=== PATIENT | male | born 1945 | race Caucasian/White ===

== ENCOUNTER 2017-03-14 10:53 | Emergency (ER) | payer MEDICARE ==
[~2017-03-14] VITALS: Ht 175.2 cm; Wt 79.8 kg
[~2017-03-14 10:53] MED LIST: DARVOCET N 1001 TAB PO; DAYPRO600 M1 PO
[2017-03-14] MEDS ORDERED: ULTRAM50 MG PO (12:39)
== END 2017-03-14 12:50 | disposition home or self-care (01) ==
LOC: ED 10:53
DX: S20.212A Contusion of left front wall of thorax, initial encounter (principal); Z88.6 Allergy status to analgesic agent; W18.39XA Other fall on same level, initial encounter; Y93.89 Activity, other specified; Y92.89 Other specified places as the place of occurrence of the external cause; Y99.8 Other external cause status

== ENCOUNTER → 2022-08-28 | Outpatient (CLI) | payer OTHER ==
[~2022-08-28] MED LIST changes: +ULTRAM50 MG PO
== END | disposition home or self-care (01) ==
LOC: RAD 12:12
PROVIDERS: ATTEND Family Medicine
DX: M79.605 Pain in left leg (principal)

== ENCOUNTER 2022-12-20 09:35 | Emergency (ER) | payer OTHER ==
[~2022-12-20] VITALS: Ht 175.2 cm; Wt 74.8 kg
[2022-12-20] MEDS ORDERED: AMLODIPINE BESYL5 MG PO (09:54)
[2022-12-20] MEDS ORDERED: FUROSEMIDE20 M1 PO (09:55)
[2022-12-20] MEDS ORDERED: CLOPIDOGREL75 MG PO (09:55)
[2022-12-20] MEDS ORDERED: METFORMIN HYDR500 MG PO (09:55)
[2022-12-20] MEDS ORDERED: DICLOFENAC SOD75 MG PO (09:56)
[2022-12-20] MEDS ORDERED: PANTOPRAZOLE SO40 MG PO (09:56)
[2022-12-20] MEDS ORDERED: ZOLPIDEM10 MG PO (09:56)
[2022-12-20] MEDS ORDERED: PROPRANOLOL HCL40 MG PO (09:56)
[2022-12-20] MEDS ORDERED: ATORVASTATIN CA40 M1 PO (09:57)
[2022-12-20] MEDS ORDERED: ZYRTEC10 M2 PO (09:58)
== END 2022-12-20 10:57 | disposition home or self-care (01) ==
LOC: ED 09:35
DX: S33.8XXA Sprain of other parts of lumbar spine and pelvis, initial encounter (principal); E11.9 Type 2 diabetes mellitus without complications; M19.90 Unspecified osteoarthritis, unspecified site; Z88.5 Allergy status to narcotic agent; Z79.899 Other long term (current) drug therapy; W18.09XA Striking against other object with subsequent fall, initial encounter; Y93.89 Activity, other specified; Y92.89 Other specified places as the place of occurrence of the external cause; Y99.8 Other external cause status

== ENCOUNTER 2023-02-18 14:01 | Emergency (ER) | payer OTHER ==
[~2023-02-18 14:01] MED LIST changes: +AMLODIPINE BESYL5 MG PO; +ATORVASTATIN CA40 M1 PO; +CLOPIDOGREL75 MG PO; +DICLOFENAC SOD75 MG PO; +FUROSEMIDE20 M1 PO; +METFORMIN HYDR500 MG PO; +PANTOPRAZOLE SO40 MG PO; +PROPRANOLOL HCL40 MG PO; +ZOLPIDEM10 MG PO; +ZYRTEC10 M2 PO
== END 2023-02-18 19:42 | disposition left against medical advice (07) ==
LOC: ED 14:01
DX: S89.91XA Unspecified injury of right lower leg, initial encounter (principal); Z88.5 Allergy status to narcotic agent; Z53.21 Procedure and treatment not carried out due to patient leaving prior to being seen by health care provider; X58.XXXA Exposure to other specified factors, initial encounter; Y93.89 Activity, other specified; Y92.89 Other specified places as the place of occurrence of the external cause; Y99.8 Other external cause status

== ENCOUNTER 2023-04-25 19:02 | Emergency (ER) | payer OTHER ==
[~2023-04-25] VITALS: Ht 175.2 cm; Wt 76.2 kg
[2023-04-25 20:12] LABS: BASO % 0.4 % (0.0-1.0); EOS # 0.1 10*3/uL (0.0-0.4); EOS % 2.4 % (1.0-4.0); HEMATOCRIT 36.3 % (42.0-52.0); LYMPH # 1.1 10*3/uL (1.3-4.4); LYMPH % 19.6 % (27.0-41.0); MEAN CELL VOLUME 87.3 fl (80.0-94.0); MEAN CORPUSCULAR HGB 28.6 pg (27.0-31.0); MEAN CORPUSCULAR HGB CONC 32.8 g/dl (33.0-37.0); MEAN PLATELET VOLUME 10.9 fl (9.6-12.3); MONO # 0.4 10*3/uL (0.1-1.0); MONO % 7.1 % (3.0-9.0); NEUT # 3.9 10*3/uL (2.3-7.9); NEUT % 70.3 % (47.0-73.0); PLATELET COUNT AUTOMATED 179 10*3/uL (130-400); RED BLOOD COUNT 4.16 10*6/uL (4.50-5.90); RED CELL DISTRI WIDTH 14.3 % (0-14.5); WHITE BLOOD COUNT 5.5 10*3/uL (4.8-10.8)
[2023-04-25 20:26] LABS: INTERNATIONAL NORM RATIO 1.1 (2.0-3.5)
[2023-04-25 20:46] LABS: ALKALINE PHOSPHATASE 67 U/L (46-116); BUN 22 mg/dl (9-23); CHLORIDE 104 mmol/L (98-107); LIPASE 34 U/L (12-53); POTASSIUM 3.7 mmol/L (3.4-5.1); SGPT/ALT 14 U/L (10-49); TOTAL PROTEIN 6.7 gm/dL (6.0-8.0)
== END 2023-04-26 01:33 | disposition short-term general hospital (02) ==
LOC: ED 19:02
PROVIDERS: Internal Medicine
DX: R58 Hemorrhage, not elsewhere classified (principal); E11.9 Type 2 diabetes mellitus without complications; I25.10 Atherosclerotic heart disease of native coronary artery without angina pectoris; Z86.73 Personal history of transient ischemic attack (TIA), and cerebral infarction without residual deficits; E78.5 Hyperlipidemia, unspecified; Z88.5 Allergy status to narcotic agent; Z98.890 Other specified postprocedural states; F17.290 Nicotine dependence, other tobacco product, uncomplicated

== ENCOUNTER 2023-05-02 14:37 | Emergency (ER) | payer OTHER ==
[~2023-05-02] VITALS: Ht 175.2 cm; Wt 76.2 kg
[2023-05-02 15:37] LABS: BASO % 0.3 % (0.0-1.0); EOS # 0.3 10*3/uL (0.0-0.4); EOS % 4.4 % (1.0-4.0); LYMPH # 1.1 10*3/uL (1.3-4.4); LYMPH % 17.6 % (27.0-41.0); MEAN CORPUSCULAR HGB CONC 34.1 g/dl (33.0-37.0); MEAN PLATELET VOLUME 10.3 fl (9.6-12.3); MONO # 0.4 10*3/uL (0.1-1.0); MONO % 6.3 % (3.0-9.0); NEUT # 4.3 10*3/uL (2.3-7.9); NEUT % 71.1 % (47.0-73.0); PLATELET COUNT AUTOMATED 212 10*3/uL (130-400); RED CELL DISTRI WIDTH 13.9 % (0-14.5); WHITE BLOOD COUNT 6.1 10*3/uL (4.8-10.8)
[2023-05-02 15:48] LABS: ACT PARTIAL THROMBO TIME 27.9 SECONDS (20.0-32.1)
[2023-05-02 16:03] LABS: ALKALINE PHOSPHATASE 82 U/L (46-116); BUN 25 mg/dl (9-23); CHLORIDE 105 mmol/L (98-107); POTASSIUM 3.6 mmol/L (3.4-5.1); SGPT/ALT 18 U/L (5-49); TOTAL PROTEIN 6.9 gm/dL (6.0-8.0)
[2023-05-02] MEDS ORDERED: SEPTDS PO (17:52)
[2023-05-02] MEDS ORDERED: CEPHALEXIN500 M1 PO (17:58)
== END 2023-05-02 18:10 | disposition home or self-care (01) ==
LOC: ED 14:37
PROVIDERS: Physician Assistant Medical
DX: S50.12XD Contusion of left forearm, subsequent encounter (principal); E11.9 Type 2 diabetes mellitus without complications; I25.10 Atherosclerotic heart disease of native coronary artery without angina pectoris; Z86.73 Personal history of transient ischemic attack (TIA), and cerebral infarction without residual deficits; E78.5 Hyperlipidemia, unspecified; Z88.5 Allergy status to narcotic agent; Z98.890 Other specified postprocedural states; W19.XXXD Unspecified fall, subsequent encounter

== ENCOUNTER → 2023-07-15 | Outpatient (CLI) | payer OTHER ==
[~2023-07-15] MED LIST changes: +CEPHALEXIN500 M1 PO; +SEPTDS PO
== END | disposition home or self-care (01) ==
LOC: CARD 01:31
PROVIDERS: ATTEND Internal Medicine
DX: I20.89 Other forms of angina pectoris (principal); R53.81 Other malaise

== ENCOUNTER → 2023-07-21 | Outpatient (CLI) | payer OTHER | END | disposition home or self-care (01) | LOC: US 01:34 | PROVIDERS: ATTEND Internal Medicine | DX: M79.604 Pain in right leg (principal); M79.89 Other specified soft tissue disorders; I10 Essential (primary) hypertension; E11.9 Type 2 diabetes mellitus without complications; I51.9 Heart disease, unspecified; R20.0 Anesthesia of skin; R09.89 Other specified symptoms and signs involving the circulatory and respiratory systems ==